=== PATIENT | female | born 1995 | race Caucasian/White ===

== ENCOUNTER 2021-01-24 14:38 | Outpatient (CLI) | payer BC, OTHER | END 2021-01-24 14:39 | disposition home or self-care (01) | LOC: CSHMRI 14:38 | PROVIDERS: ATTEND Psychiatry & Neurology Neurology | DX: G43.019 Migraine without aura, intractable, without status migrainosus (principal) | CPT/HCPCS: 70553 ==

== ENCOUNTER 2022-04-11 15:50 | Outpatient (CLI) | payer BC ==
[2022-04-11 16:34] LABS: Hemoglobin 12.8 g/dL (12.0-15.5); Mean Corpuscular HGB CONC 33.2 g/dL (32.0-36.0); Mean Corpuscular Hemoglobin 33.3 pg (27.0-33.0); Mean Corpuscular Volume 100.3 fl (81.6-98.3); Mean Platelet Volume 9.6 fl (7.4-10.4); Platelet Count 292 10x3/uL (150-450); RBC Distribution Width 12.5 % (11.5-14.5); Red Blood Cell (RBC) Count 3.84 10x6/uL (3.90-5.03); White Blood Cell (WBC) Count 6.4 10x3/uL (3.5-10.5)
[2022-04-11 16:59] LABS: BHCG - Serum Negative (NEGATIVE); Pregs Control Background? CLEAR/WHITE (CLR/WHITE); Pregs Control Bar Appear? YES (CONTROL BAR)
== END 2022-04-11 15:51 | disposition home or self-care (01) ==
LOC: CSHLAB 15:50
PROVIDERS: ATTEND Obstetrics & Gynecology
DX: Z01.812 Encounter for preprocedural laboratory examination (principal); Z20.822 Contact with and (suspected) exposure to COVID-19; N83.202 Unspecified ovarian cyst, left side
CPT/HCPCS: 84703; 85027; 86850; 86900; 86901; 87811

== ENCOUNTER 2022-04-16 07:41 | Day surgery (SDC) | payer BC ==
[2022-04-12 08:56] VITALS: BMI 20.3
[~2022-04-16 07:41] MED LIST: Bupivacaine PF 0.5% 30 ML VIAL ONE; EPINEPHrine 1 MG/ML AMP ONE
[2022-04-16] MEDS ORDERED: CeleCOXIB 100 MG CAP ONE (07:54)
[2022-04-16] MEDS ORDERED: Gabapentin 300 MG CAP ONE (07:54)
[2022-04-16] MEDS ORDERED: Lidocaine 1% MPF 2 ML VIAL ONE (07:55)
[2022-04-16] MEDS ORDERED: Famotidine/PF 20 mg/2ml Vial ONE (07:55)
[2022-04-16] MEDS ORDERED: PROPOFOL 20 ML ONE (08:27)
[2022-04-16] MEDS ORDERED: Lidocaine 1% PF 5 ML VIAL ONE (08:27)
[2022-04-16] MEDS ORDERED: Midazolam HCl 2 mg/2 ml Vial ONE (08:47)
[2022-04-16] MEDS ORDERED: Clindamycin/D5W 900 mg/50 ml Premix Bag ONE (08:51)
[2022-04-16] MEDS ORDERED: Ondansetron PF 4 MG/2 ML Vial ONE (08:52)
[2022-04-16] MEDS ORDERED: Levofloxacin 500 mg/D5W 100 ml Premix Bag ONE (08:52)
[2022-04-16] MEDS ORDERED: Dexamethasone 4 mg/ml Vial ONE (08:52)
[2022-04-16] MEDS ORDERED: Fentanyl 100 MCG/2 ML VIAL ONE ×2 (08:53→09:48)
[2022-04-16] MEDS ORDERED: Glycopyrrolate 0.2 MG/ML 5 ML SYRINGE ONE (10:08)
== END 2022-04-16 12:35 | disposition home or self-care (01) ==
LOC: CSHSDC 07:41
PROVIDERS: ATTEND Obstetrics & Gynecology
PROC: 0UB04ZZ Excision of Right Ovary, Percutaneous Endoscopic Approach (ICD-10-PCS; principal; 2022-04-16)
DX: N80.1 Endometriosis of ovary (principal); N83.202 Unspecified ovarian cyst, left side; K66.0 Peritoneal adhesions (postprocedural) (postinfection); F90.9 Attention-deficit hyperactivity disorder, unspecified type; K21.9 Gastro-esophageal reflux disease without esophagitis; G43.909 Migraine, unspecified, not intractable, without status migrainosus; F41.9 Anxiety disorder, unspecified; F17.290 Nicotine dependence, other tobacco product, uncomplicated; Z20.822 Contact with and (suspected) exposure to COVID-19; Z79.899 Other long term (current) drug therapy; Z88.1 Allergy status to other antibiotic agents; Z98.890 Other specified postprocedural states
CPT/HCPCS: 88305; C1776; J0171; J1100; J1956; J2250; J2405; J2704; J3010; J3490; S0020; S0028